=== PATIENT | female | born 1995 | race Caucasian/White ===

== ENCOUNTER 2016-10-03 02:31 | Inpatient (IN) | payer MEDICAID, OTHER ==
[2016-10-10] MEDS ORDERED: LIDOCAINE Viscous 2% 15 ML UDCUP ONE (19:44)
[2016-10-10] MEDS ORDERED: MINERAL OIL 25 ML BOT ONE (19:44)
[2016-10-10] MEDS ORDERED: OXYTOCIN 10 UNITS/ML VIAL ONE (19:44)
[2016-10-10] MEDS ORDERED: LIDOCAINE 1% (PRES FREE) 30 ML VIAL ONE (19:44)
[2016-10-10] MEDS ORDERED: OXYTOCIN IN LR 0 ML IV ONE (19:45)
[2016-10-10] MEDS ORDERED: SODIUM CHLORIDE 0.9% FLUSH 20 ML ONE (19:45)
[2016-10-10] MEDS ORDERED: IV START KIT ONE (19:45)
[2016-10-10] MEDS ORDERED: PUMP TUBING ONE (19:45)
[2016-10-10] MEDS ORDERED: DINOPROSTONE 10 MG SUP VG ONE (20:13)
[2016-10-10 20:52] LABS: HEMATOCRIT 32.3 % (37.0-47.0); HEMOGLOBIN 10.3 gm/l (12.0-16.0); MEAN CELL VOLUME 84.8 fl (81.0-99.0); MEAN CORPUSCULAR HGB CONC 31.9 g/dl (33.0-37.0); RED CELL DISTRIBUTION WIDTH 14.4 % (11.5-14.5)
[2016-10-10 20:59] VITALS: BMI 37.9
--- NOTE | 2016-10-10 21:21 | PCMAN ---
OB Admission Note - History : 3 Term: 0 : 0 Abortions (S&E): 2 Livin EDC:: 10/03/16 Gestational Age (weeks): 41 Days (#/7): 0 Admit Cervical Dilation:: 1 Admit Cervical Effacement (%):: 50 Admit Station:: -3 Admit Presentaton:: vertex Membrane Status: Intact Contractions: Yes Contraction Frequency:: Q4 mins, mild Heart Rate:: 145 Status:: Category 1, moderate variability, accels present, no decels EFW:: 7 lb Summary of Course:: 21 yo at 41 wks, dated by LMP, here for postdates induction. PMHx: depression with SI, KIMMIE, GERD, chlamydia, abnormal pap, migraines PSHx: neg SOCHx: denies current tob, etoh or ilicit drugs. h/o alcohol and THC use OBHx: 09/2011 13 wk SAB 03/2015 9 wk SAB Tdap 07/07/16 Flu vaccine 05/12/16 - Labs Blood Type: A (+) positive Hct/Hgb:: 11.3/34.2 Rubella Status: Immune GBS Status: Negative Abnormal Labs: None Other Labs:: Ab neg RPR NR HBSAg NR 1hr 102 Quad normal GC/CT neg - Review of Systems Denies RUQ pain, LOWERY, visual changes. Reports good movement. No strong contractions, but having jacky rueda, no LOF or VB - Physical Exam General: Afebrile, No Acute Distress Psych/Mental Status: Mood/Affect Appropriate Neurological: Grossly Intact, Normal Speech HEENT: Atraumatic Lungs: Clear to Auscultation Bilaterally, Normal Air Movement Cardiovascular: Regular Rate and Rhythm, Normal S1, Normal S2 Extremities: Full ROM Skin: Normal Color, Warm, Dry - Problems (1) Post-dates Status: Acute Code: O48.0Assessment/Plan: Admit for cervical ripening with cervidil Placed at 2112 Rx for sleep aid if needed
[2016-10-10] MEDS ORDERED: CALCIUM CARBONATE 500 MG TAB.CHEW PO PRN (22:47)
[2016-10-10] MEDS: ZOLPIDEM TARTRATE 5 MG TABLET PO PRN (23:32)
[2016-10-10 23:53] LABS: AMPHETAMINES/METHAMPHETAMINES NEGATIVE (NEGATIVE); COCAINE NEGATIVE (NEGATIVE)
[2016-10-10 23:54] LABS: MARIJUANA POSITIVE (NEGATIVE); METHADONE NEGATIVE (NEGATIVE); OPIATES NEGATIVE (NEGATIVE); TRICYCLIC ANTIDEPRESSANTS NEGATIVE (NEGATIVE)
[2016-10-11] MEDS ORDERED: LIDOCAINE Viscous 2% 15 ML UDCUP TP ONE (12:44)
[2016-10-11] MEDS: FENTANYL 100 MCG/2 ML VIAL IV PRN ×2 (13:14→13:21)
--- NOTE | 2016-10-11 14:04 | PDOC36 ---
Provider Note Note: SUBJECTIVE: Not feeling any contractions OBJECTIVE: VS: 132/67, 113 bpm, 18 rpm, 98.1F FHT: 140s moderate variability, no accelerations, variable decelerations, category II [place]: q 10 minutes SVE: 1-2/50/-3 ASSESSMENT: 21 yo @ 41 1/7 weeks gestation here for postdates IOL. PLAN: Cervix has not made significant changes, burton bulb placed, will recheck cervix in a few hours.
--- NOTE | 2016-10-11 19:49 | PDOC36 ---
Provider Note Note: SUBJECTIVE: Patient feeling contractions, mild to moderate. Also has some blood show. OBJECTIVE: VS: AFVSS FHT: Category I [place]: q3-5 minutes SVE: 11/13/3 ASSESSMENT: 21 yo @ 41 1/7 weeks gestation here for postdates IOL. PLAN: Sabino is now out, will let her walk for an hour or so then ok to start some Pitocin and see if we can AROM later tonight or in the AM.
[2016-10-11] MEDS ORDERED: OXYTOCIN IN LR 500 ML IV PRN (19:52)
[2016-10-11] MEDS ORDERED: PUMP TUBING ONE (20:38)
[2016-10-11] MEDS: LACTATED RINGERS 1,000 ML IV SCH (20:44)
--- NOTE | 2016-10-11 22:27 | PDOC36 ---
Provider Note Note: SUBJECTIVE: Having some mild contractions OBJECTIVE: VS: AFVSS FHT: 140s, Category I [place]: q4-6 min SVE: DNE ASSESSMENT: 21 yo @ 41 1/7 weeks gestation here for postdates IOL. PLAN: Pt has been walking, at last check her cervix was high. head is not well applied, unable to AROM. Will start low dose Pitocin overnight, recheck in AM and see if we can AROM at that time.
[2016-10-11] MEDS: ZOLPIDEM TARTRATE 5 MG TABLET PO PRN (23:34)
--- NOTE | 2016-10-12 06:59 | PDOC36 ---
Provider Note Note: SUBJECTIVE: Started low dose pitocin overnight hoping head would engage after burton came out and we could AROM this AM. OBJECTIVE: VS: AFVSS FHT: Cat I [place]: q3-6 min SVE: 4/80/high mid position ASSESSMENT: 21 yo @ 41 2/7 weeks gestation here for postdates IOL. PLAN: Head has come from posterior to mid position and is more applied. May be able to AROM this AM. Will discuss with oncoming MD.
[2016-10-12] MEDS ORDERED: ACETAMINOPHEN 325 MG TABLET PO PRN (07:14)
[2016-10-12] MEDS: LACTATED RINGERS 1,000 ML IV SCH ×3 (09:30→22:21)
--- NOTE | 2016-10-12 12:05 | PDOC36 ---
Provider Note Subject: PN Note: S: Doing well but agitated bc this IOL is taking so long. Thought would get AROM today as Pit didn't work on her last night. O: AVSS RRR CTAB gravid FHT: 135, accels, no decels, Cat I [place]: q3-5min Pit 9 A/P: 21 yo G1 at 41w3d here for post dates IOL Cont Pit, will recheck SVE after reg UCs for 2-3 hrs. expt mgmt
--- NOTE | 2016-10-12 16:15 | PDOC36 ---
Provider Note Subject: pn Note: s: not feeling uc's. agitated that not changing. feels like her body doesn't respond to pit and that she needs csxn. insisted would not go home. o: avss fht 130, accels, no decels. cat I [place]: q2-3 sve: 4.5/80/ballotable pit 13 a/p: iol postdates discussed lack of signif change and not getting into labor on pit, risk of csxn w more invasive interventions advised if no change may dc home and bring back in a few days (by 42w0d) for repeat iol after discussion, pt chose to stay and cont on pit until maxed, rather than dc home now if no change after on pit 20, will check bpp, if reassuring dc home and will sched repeat iol pt stated understanding and agreed w plan.
[2016-10-12] MEDS ORDERED: FENTANYL/ROPIVACAINE EPIDURAL 250 ML EP ONE (23:41)
[2016-10-12] MEDS ORDERED: EPIDURAL PUMP SET ONE (23:41)
[2016-10-12] MEDS ORDERED: EPIDURAL PROCEDURE TRAY ONE (23:55)
[2016-10-13] MEDS ORDERED: SODIUM CHLORIDE 0.9% 500 ML IV PRN (00:50)
[2016-10-13] MEDS ORDERED: DIPHENHYDRAMINE HCL 50 MG/1 ML VIAL IV PRN ×3 (00:50→07:03)
[2016-10-13] MEDS ORDERED: ONDANSETRON 4 MG/2ML 2 ML VIAL IV PRN ×3 (00:50→07:03)
[2016-10-13] MEDS ORDERED: EPHEDRINE SULFATE 50 MG/ML 1ML VIAL IV PRN ×2 (00:50→05:18)
[2016-10-13] MEDS ORDERED: NALBUPHINE HCL 20 MG/ML AMP IV PRN ×2 (00:50→05:18)
[2016-10-13] MEDS ORDERED: NALOXONE HCL 0.4 MG/ML VIAL IV PRN ×2 (00:50→05:18)
[2016-10-13] MEDS ORDERED: LACTATED RINGERS 500 ML IV PRN (00:50)
[2016-10-13] MEDS: FENTANYL/ROPIVACAINE EPIDURAL 250 ML EP SCH (01:35)
[2016-10-13] MEDS ORDERED: MORPHINE SULFATE (DURAMORPH) 1 MG/ML 10ML AMP ONE (04:39)
[2016-10-13] MEDS ORDERED: OXYTOCIN 10 UNITS/ML VIAL ONE (04:39)
[2016-10-13] MEDS ORDERED: LIDOCAINE 2% (PRES FREE) 5 ML VIAL ONE ×3 (04:39→05:41)
[2016-10-13] MEDS ORDERED: ONDANSETRON 4 MG/2ML 2 ML VIAL ONE (04:39)
--- NOTE | 2016-10-13 04:39 | PDOC36 ---
Provider Note Subject: addendum Note: S: UCs painful. Has packed in case she needs to go home, but hoping that this pain is sign that she is changing. O: AVSS FHT: 140, accels, no decels, Cat I [place]: q2-3 Pit 20 SVE: 5.5/85/high, but well engaged AROM thin particulate mec A/P: IOL for postdates Cont Pit Pain: plans epidural later Consider, titrate pit down and see if pt cont UC good pattern on lower dose
[2016-10-13] MEDS ORDERED: CITRIC ACID/SODIUM CITRATE 15 ML UDCUP PO ONE (04:42)
[2016-10-13] MEDS ORDERED: FAMOTIDINE 10 MG/ML 2ML VIAL ONE (04:43)
--- NOTE | 2016-10-13 04:43 | PDOC36 ---
Provider Note Subject: add Note: s: painful. desires epidural. o: sve unchanged (exam by RN) fht Cat I [place] q 2-3 a/p: iol for postdates epidural for pain poor progression, plan IUPC after epidural placed. cont pit
--- NOTE | 2016-10-13 04:46 | PDOC36 ---
Provider Note Subject: add Note: RN called to notify about deep decels, and turning down pit agreed w plan will go in to further assess
--- NOTE | 2016-10-13 04:51 | PDOC36 ---
Provider Note Subject: add: Note: s: comfortable w epidural. anxious about slow progression and baby's heart beat dropping down w UCs. pt ok if needs csxn o: avss fht: 145, min variability, variable decels, cat II [place]: q 2-4 min sve: 6/90/-2. signif caput, mod mec iupc placed in usu manner without difficulty and stabilized to leg. pit: a/p postdates iol w poor progression will check for adequacy of UCs if adequate and no progression will proceed w csxn
--- NOTE | 2016-10-13 04:55 | PDOC36 ---
Provider Note Subject: add: Note: s: comfortable w epidural. awaiting plan o: vss toco: UC not returning to resting pressure, q 1-6 min fht: 145 min variability, variable decels, cat II pit 13 mu/min a/p: postdates iol stop pit due to tetanic UCs consider restart pit in 30 min vs LTCS
[2016-10-13] MEDS ORDERED: CEFAZOLIN SODIUM 2 GRAM DUPLEX 50 ML IV ONE (05:12)
--- NOTE | 2016-10-13 05:12 | PDOC36 ---
Provider Note Subject: add Note: s: comfortable w epidural o: vss fht: 150, accels present, decels absent toco: q SVE: /-2 a/p: postdates d/w pt poor progression and decels w pit, rec csxn. R/B/O including but not limited to pain, bleeding, infxn, injury to other organs, tranfusion and hysterectomy. pt stated understanding and agreed w plan. consent to be signed. dr lynn to come in for LTCS
[2016-10-13] MEDS ORDERED: HYDROMORPHONE HCL 2 MG/ML SYRINGE IV PRN (05:18)
[2016-10-13] MEDS ORDERED: HYDROMORPHONE HCL 1 MG/ML SYRINGE IV PRN ×3 (05:18→06:24)
[2016-10-13] MEDS ORDERED: PROMETHAZINE HCL 25 MG/ML VIAL IM PRN ×2 (05:18→07:03)
[2016-10-13] MEDS ORDERED: FENTANYL 100 MCG/2 ML VIAL ONE (05:38)
[2016-10-13] MEDS ORDERED: MIDAZOLAM HCL 1 MG/ML 2ML VIAL ONE (05:38)
[2016-10-13] MEDS ORDERED: KETAMINE HCL UD SYRINGE 100 MG/2 ML IV ONE ×2 (05:39→05:40)
[2016-10-13] MEDS ORDERED: PROPOFOL 20 ML IV ONE (05:44)
[2016-10-13] MEDS ORDERED: KETOROLAC TROMETHAMINE 30 MG/ML 1 ML VIAL ONE (05:55)
[2016-10-13] MEDS ORDERED: HYDROMORPHONE HCL 1 MG/ML SYRINGE ONE (06:07)
--- NOTE | 2016-10-13 06:27 | PDOC37 ---
Procedure: Primary Section Date of Procedure: 10/13/16 Preoperative Diagnosis: 1. 41 week intrauterine . 2. NRFHT 3. Failed Induction 4. meconium Postoperative Diagnosis: Same Surgeon: Alejandra Greenfield MD Assist: Dr. Mindy Hunt Indication for Procedure: 21 year old, at 41 weeks 0 days with postdates induction Anesthesia: epidural with Duramorph Complications: None Estimated Blood Loss: 900 mLs IV Fluids: 1200 mLs of LR Medications: 2 gm of Ancef for routine prophylaxis. 20 units of Pitocin. Urine Output: 150 mLs of clear urine Findings: . Normal uterus, ovaries, and tubes. Procedure: The patient was taken to the operating room where epidural anesthesia was found to be adequate. She was then prepared and draped in the normal sterile fashion in the dorsal supine position with a leftward tilt. A timeout was performed. A Pfannensteil skin incision was then made with the scalpel and carried through to the underlying layer of scalpal The fascia was incised in the midline and the incision extended laterally with the Dc scissors. The superior aspect of the fascial incision was then grasped with the Rey clamps, elevated, and the underlying rectus muscles dissected off bluntly and sharply where needed. Attention was then turned to the inferior aspect of the incision which, in a similar fashion, was grasped, tented up with the Rey clamps, and the rectus muscle dissected off bluntly and sharply with Dc scissors. The rectus muscles were then in the midline, and the peritoneum was identified and entered bluntly. The peritoneal incision was then extended with good visualization of the bladder. The bladder blade was then inserted and the vesicouterine peritoneum identified, grasped with pick-ups and entered sharply with the Metzenbaum scissors. The incision was then extended laterally and the bladder flap created digitally. The bladder blade was then reinserted and the lower uterine segment incised in a transverse fashion with the scalpel. The uterine incision was then extended laterally by pulling superolaterally on both sides. Membranes were ruptured and fluid was clear. The bladder blade was removed the 's head was flexed out of vertex position and delivered atraumatically. The nose and mouth were suctioned with bulb suction and the cord was clamped and cut. The was handed off to the waiting direct support staff member. cord blood was sent The placenta was then delivered with gentle cord traction. The uterus was then exteriorized and cleared of all clots and debris. The uterine incision was repaired with 0 vicryl in a running, locked fashion. A second layer of the same suture was used in an imbricating fashion to obtain excellent hemostasis. The gutters were cleared of all clots. The uterus was returned to the abdomen. The peritoneum was closed with 2.0 vicryl. The fascia was reapproximated with 0 Vicryl in a running fashion. The skin was closed with manas. The patient tolerated the procedure well. Sponge, lap and needle counts were correct times three. A debriefing was held at the end of the procedure with anesthesia and nursing staff. The patient was taken to the recovery room in stable condition.
[2016-10-13] MEDS ORDERED: DIPHENHYDRAMINE HCL 25 MG CAPSULE PO PRN (07:03)
[2016-10-13] MEDS ORDERED: LANOLIN 50 APPLIC/7G TUBE TP PRN (07:03)
[2016-10-13] MEDS: KETOROLAC TROMETHAMINE 30 MG/ML 1 ML VIAL IV SCH ×2 (13:17→20:10)
[2016-10-13] MEDS: DOCUSATE SODIUM 100 MG CAPSULE PO SCH ×2 (20:11→23:14)
[2016-10-13] MEDS: PRENATAL VIT/FE FUMARATE/FA 1 TABLET PO SCH (23:14)
[2016-10-14] MEDS: OXYCODONE/ACETAMINOPHEN 5/325 MG TABLET PO PRN ×7 (00:34→21:54)
[2016-10-14] MEDS: IBUPROFEN 800 MG TABLET PO PRN ×4 (02:23→21:54)
[2016-10-14] MEDS ORDERED: KETOROLAC TROMETHAMINE 30 MG/ML 1 ML VIAL IV PRN (06:00)
[2016-10-14 06:51] LABS: HEMATOCRIT 25.3 % (37.0-47.0); HEMOGLOBIN 7.9 gm/l (12.0-16.0)
[2016-10-14] MEDS: LACTATED RINGERS 1,000 ML IV SCH (07:34)
[2016-10-14] MEDS: FENTANYL/ROPIVACAINE EPIDURAL 250 ML EP SCH (07:35)
[2016-10-14] MEDS: KETOROLAC TROMETHAMINE 30 MG/ML 1 ML VIAL IV SCH (07:36)
[2016-10-14] MEDS: DOCUSATE SODIUM 100 MG CAPSULE PO SCH ×2 (08:42→21:54)
[2016-10-14] MEDS: PRENATAL VIT/FE FUMARATE/FA 1 TABLET PO SCH (08:42)
--- NOTE | 2016-10-14 11:35 | PDOC44 ---
- Subjective Day: 1 (post operative day 1) Patient reports pain on side of incision, due for pain meds soon. Ambulating, passing flatus. Tolerating PO. Having difficulty with BF latch, working with and pumping. Denies dizzines. Voiding on her own. Reports Flatus, Reports Pain Tolerable, Reports , Reports Lochia Light, Reports Tolerating Regular Diet, Denies Nausea, Denies Vomiting - Objective Temp Pulse Resp BP Pulse Ox 97.6 F 94 16 132/59 10/14/16 08:00 10/14/16 08:00 10/14/16 08:00 10/14/16 08:00 Lab Results 10/14/16 06:25 Hgb 7.9 L Hct 25.3 L Current Medications Generic Name Dose Route Start Last Admin Trade Name Freq PRN Reason Stop Dose Admin Diphenhydramine HCl 25 - 50 mg 10/13/16 07:03 Benadryl PO Q6H PRN Itching (Mild/Moderate) Diphenhydramine HCl 25 - 50 mg 10/13/16 07:03 Benadryl IV Q6H PRN Itching (Severe) Docusate Sodium 100 mg 10/13/16 09:00 10/14/16 08:42 Colace PO 100 mg BID [place] Administration Emollient Ointment 1 applic 10/13/16 07:03 [id number] TP PRN PRN sore nipples Ferrous Sulfate 325 mg 10/14/16 21:00 Ferrous Sulfate PO BID [place] Hydromorphone HCl 1 mg 10/13/16 06:24 Dilaudid IV Q1H PRN Pain Ibuprofen 800 mg 10/13/16 12:00 10/14/16 08:42 Motrin PO 800 mg Q6H PRN Administration Pain Ketorolac Tromethamine 30 mg 10/14/16 06:00 Toradol IV 10/18/16 05:59 Q6H PRN Pain (Mild/Moderate) Multivi/Iron Carb/Fe Sulf/FA/Prenat 1 tab 10/13/16 09:00 10/14/16 08:42 Plus PO 1 tab DAILY [place] Administration Ondansetron HCl 4 mg 10/13/16 07:03 Zofran IV Q6H PRN Nausea/Vomiting Oxycodone/Acetaminophen 1 - 2 tab 10/13/16 07:03 10/14/16 09:12 Percocet 5/325 PO 1 tab Q4H PRN Administration Pain (Moderate) Promethazine HCl 25 mg 10/13/16 07:03 Phenergan IM Q6H PRN Nausea/Vomiting Sodium Chloride 10 ml 10/13/16 07:03 10/13/16 20:11 Normal Saline 10ml Flush IV 10 ml PRN PRN Administration IV Flush Sodium Chloride 10 ml 10/13/16 09:00 10/14/16 08:41 Normal Saline 10ml Flush IV 10 ml Q8HR [place] Administration - Physical Exam General: Afebrile, No Acute Distress Psych/Mental Status: Mood/Affect Appropriate, Bonding Well Neurological: Alert, Normal Speech Lungs: Clear to Auscultation Bilaterally, Normal Air Movement Cardiovascular: Regular Rate and Rhythm, Normal S1, Normal S2 Fundus: Firm, Midline Extremities: Full ROM, No Edema, No Tenderness Skin: Normal Color, Warm, Dry, Intact, No Rash Wound HAND III CUTTER: Dressing Clean/Dry/Intact - Problems:Assessment/Plan (1) delivery delivered Status: AcuteAssessment/Plan: POD #1 s/p primary C/S for NRFHT, failed induction of labor - continue post op care - encourage ambulation - BF support - advised may shower and remove bandage today (2) Anemia due to blood loss, acute Status: AcuteAssessment/Plan: Post op anemia, Hgb 7.9 down from 10.3 - will start iron BID Disposition: Stable
[2016-10-14] MEDS: FERROUS SULFATE (65 Fe) 325 MG TABLET PO SCH (21:54)
[2016-10-15] MEDS: OXYCODONE/ACETAMINOPHEN 5/325 MG TABLET PO PRN ×5 (02:39→20:19)
[2016-10-15] MEDS: IBUPROFEN 800 MG TABLET PO PRN ×3 (06:38→18:31)
--- NOTE | 2016-10-15 09:25 | PDOC44 ---
- Subjective Day: 2 having some latching problems with the baby, using s/s and banked breast milk, pain is controlled. no cp or sob. minimal lochia. Reports Flatus, Reports Pain Tolerable, Reports , Reports Lochia Light, Reports Tolerating Regular Diet - Objective Temp Pulse Resp BP Pulse Ox 97.3 F 89 14 111/57 10/15/16 08:01 10/15/16 08:01 10/15/16 08:01 10/15/16 08:01 Current Medications Generic Name Dose Route Start Last Admin Trade Name Freq PRN Reason Stop Dose Admin Diphenhydramine HCl 25 - 50 mg 10/13/16 07:03 Benadryl PO Q6H PRN Itching (Mild/Moderate) Docusate Sodium 100 mg 10/13/16 09:00 10/14/16 21:54 Colace PO 100 mg BID [place] Administration Emollient Ointment 1 applic 10/13/16 07:03 [id number] TP PRN PRN sore nipples Ferrous Sulfate 325 mg 10/14/16 21:00 10/14/16 21:54 Ferrous Sulfate PO 325 mg BID [place] Administration Ibuprofen 800 mg 10/13/16 12:00 10/15/16 06:38 Motrin PO 800 mg Q6H PRN Administration Pain Multivi/Iron Carb/Fe Sulf/FA/Prenat 1 tab 10/13/16 09:00 10/14/16 08:42 Plus PO 1 tab DAILY [place] Administration Oxycodone/Acetaminophen 1 - 2 tab 10/13/16 07:03 10/15/16 06:38 Percocet 5/325 PO 2 tab Q4H PRN Administration Pain (Moderate) Promethazine HCl 25 mg 10/13/16 07:03 Phenergan IM Q6H PRN Nausea/Vomiting - Physical Exam General: Afebrile Psych/Mental Status: Mood/Affect Appropriate Neurological: Alert Lungs: Clear to Auscultation Bilaterally Cardiovascular: Regular Rate and Rhythm Breast: Soft Fundus: Firm Abdomen: Normal Bowel Sounds Lochia: Light Rectal Exam: Deferred Extremities: Other (nt, no edema) Skin: Normal Color Wound [employer]: [place] Intact - Problems:Assessment/Plan (1) delivery delivered Status: AcuteAssessment/Plan: POD #2 s/p primary C/S for NRFHT, failed induction of labor - continue post op care - encourage ambulation - BF support (2) Anemia due to blood loss, acute Status: AcuteAssessment/Plan: Post op anemia, Hgb 7.9 down from 10.3 - will cont. iron BID Disposition: Anticipate DC Home Tomorrow
[2016-10-15] MEDS: FERROUS SULFATE (65 Fe) 325 MG TABLET PO SCH ×2 (12:20→20:18)
[2016-10-15] MEDS: DOCUSATE SODIUM 100 MG CAPSULE PO SCH ×2 (12:20→20:18)
[2016-10-15] MEDS: PRENATAL VIT/FE FUMARATE/FA 1 TABLET PO SCH (12:24)
[2016-10-15] MEDS: LACTATED RINGERS 1,000 ML IV SCH ×2 (15:45)
[2016-10-16] MEDS: OXYCODONE/ACETAMINOPHEN 5/325 MG TABLET PO PRN ×2 (00:24→11:13)
[2016-10-16] MEDS: IBUPROFEN 800 MG TABLET PO PRN ×2 (00:25→07:21)
[2016-10-16 07:21] VITALS: BP 115/60
[2016-10-16] MEDS: PRENATAL VIT/FE FUMARATE/FA 1 TABLET PO SCH (09:15)
[2016-10-16] MEDS: DOCUSATE SODIUM 100 MG CAPSULE PO SCH (09:16)
[2016-10-16] MEDS: FERROUS SULFATE (65 Fe) 325 MG TABLET PO SCH (09:16)
--- NOTE | 2016-10-16 09:36 | PDOC39B ---
Hospital Course: ADMIT DATE: 10/10/16 DISCHARGE DATE: 10/16/16 ADMISSION DIAGNOSES: IOL postdates PROCEDURES: Primary LTCS HISTORY OF PRESENT ILLNESS: 21 year old G3 T0 L0 at 41 weeks 3 days presenting with IOL for postdates. She underwent induction with cervidil and low dose pitocin, and progressed to 6 cm, and then had NRFHT and underwent a primary LTCS. HOSPITAL COURSE: The patient delivered a viable female. no complications. Is doing well on POD#3 and ready for discharge. By day of discharge the patient is ambulating, eating, voiding, and passing flatus without difficulty. Pain is controlled and lochia is appropriate. She is [] - Physical Exam Vital Signs: Temp Pulse Resp BP Pulse Ox 97.9 F 97 16 115/60 10/16/16 07:14 10/16/16 07:14 10/16/16 07:14 10/16/16 07:14 General: Afebrile Psych/Mental Status: Mood/Affect Appropriate Neurological: Alert HEENT: Atraumatic Lungs: Clear to Auscultation Bilaterally Cardiovascular: Regular Rate and Rhythm Breast: Nipples Cracked Fundus: Firm, At Umbilicus Abdomen: Normal Bowel Sounds Lochia: Light Rectal Exam: Deferred Extremities: Other (nt, no edema) Skin: Normal Color Wound: Well Approximated - Discharge Diagnosis (1) delivery delivered Status: AcuteAssessment/Plan: POD #3 s/p primary C/S for NRFHT, failed induction of labor - continue post op care - encourage ambulation - BF support remove manas discharge home (2) Anemia due to blood loss, acute Status: AcuteAssessment/Plan: Post op anemia, Hgb 7.9 down from 10.3 - will cont. iron BID send home with rx. - Discharge Plan Condition: Good Disposition: Home Prescriptions: Docusate Sodium [COLACE 100 MG CAPSULE (SHF)] 100 mg PO BID #60 cap Ibuprofen [Motrin] 800 mg PO Q8H PRN #30 tablet PRN Reason: Pain FERROUS SULFATE (65 Fe) [IRON FERROUS SULFATE 325 MG TABLET (SHF)] 325 mg PO BID #60 tab Oxycodone HCl/Acetaminophen [PERCOCET 5/325 MG TABLET (SHF)] 1 tab PO Q4H PRN # 30 tab PRN Reason: Pain Follow-Up: Mari Mitchell PA-C [Primary Care Provider] - In 2 weeks (clinic to call)
[2016-10-16] MEDS ORDERED: LACTATED RINGERS 1,000 ML ONE (15:49)
[2016-10-16] MEDS ORDERED: IV START KIT ONE (15:49)
== END 2016-10-16 12:25 | disposition home or self-care (01) | DRG 765 ==
LOC: EDSTATUS 18:44 → FBC 10-10 18:46
PROVIDERS: ADMIT Family Medicine; ATTEND Family Medicine
PROC: 3E0P7GC Introduction of Other Therapeutic Substance into Female Reproductive, Via Natural or Artificial Opening (ICD-10-PCS; principal; 2016-10-10)
PROC: 10D00Z1 Extraction of Products of Conception, Low, Open Approach (ICD-10-PCS; 2016-10-13)
DX: O48.0 Post-term pregnancy (principal); O99.344 Other mental disorders complicating childbirth; F32.9 Major depressive disorder, single episode, unspecified; O99.62 Diseases of the digestive system complicating childbirth; K21.9 Gastro-esophageal reflux disease without esophagitis; O76 Abnormality in fetal heart rate and rhythm complicating labor and delivery; O61.0 Failed medical induction of labor; O77.0 Labor and delivery complicated by meconium in amniotic fluid; O62.1 Secondary uterine inertia; O99.02 Anemia complicating childbirth; D62 Acute posthemorrhagic anemia; Z3A.41 41 weeks gestation of pregnancy; Z37.0 Single live birth

== ENCOUNTER 2016-10-19 10:53 | Outpatient (CLI) | payer OTHER | END 2016-10-19 10:54 | disposition home or self-care (01) | LOC: BABIESSH 10:53 | PROVIDERS: ATTEND Family Medicine | DX: Z39.1 Encounter for care and examination of lactating mother (principal) ==

== ENCOUNTER 2016-10-24 17:00 | Outpatient (CLI) | payer OTHER | END 2016-10-24 17:01 | disposition home or self-care (01) | LOC: BABIESSH 17:00 | PROVIDERS: ATTEND Family Medicine | DX: Z39.1 Encounter for care and examination of lactating mother (principal) ==